=== PATIENT | female | born 1995 | race Two or more races ===

== ENCOUNTER 2016-11-25 19:02 | Emergency (ER) | payer SELFPAY ==
[~2016-11-25] VITALS: Ht 157.5 cm; Wt 72.6 kg
[~2016-11-25 19:02] MED LIST: HYDR-2666 PO; PROM25TA10 PO
[2016-11-25 19:48] VITALS: BP 136/62
[2016-11-25] MEDS ORDERED: IOHEXOL 300 MG/ML 75 ML VIAL IV ONE (20:30)
--- NOTE | 2016-11-25 20:57 | RAD ---
CT soft tissue neck with contrast Indication: Left jaw pain and swelling. Axial imaging through the soft tissues of the neck was performed after the administration of intravenous contrast. Sagittal and coronal reformations were also performed. No prior studies are available for comparison. The visualized intracranial structures are unremarkable. The posterior nasopharynx is unremarkable. There is some thickening of the oropharyngeal mucosa, perhaps on the basis of pharyngitis or tonsillitis. The parapharyngeal fat planes are preserved. There is no fluid collection or abscess. No retropharyngeal fluid collection is seen. There are some enlarged jugulodigastric lymph nodes bilaterally which are likely reactive. The submandibular and parotid glands are symmetric bilaterally. The epiglottis is unremarkable. Larynx is unremarkable. No thyroid mass is detected. Note is made of moderate mucosal thickening bilateral maxillary sinuses as well as sphenoid sinus. Impression: There appears to be some thickening of the marlon pharyngeal mucosal space, described above, consistent with nonspecific pharyngitis or perhaps tonsillitis. Direct visualization is recommended. No definite retropharyngeal abscess or tonsillar abscess is seen. There appear to be reactive lymphadenopathy bilaterally. Moderate paranasal sinus mucosal disease is also seen. Electronically signed by: Isaac Willis MD (Nov 25, 2016 20:56:07)
[2016-11-25] MEDS ORDERED: PENI500T PO (21:38)
--- NOTE | 2016-11-25 21:39 | PHYS DOC ---
Past Medical History Past Medical History: No Pertinent History Past Surgical History: No Surgical History Alcohol Use: None Drug Use: None Adult General Chief Complaint Chief Complaint: Congestion HPI HPI Patient is a 21 year old female who presents with diffiuclty fully opening her mouth for 4 days. reports approx 8 days ago she experienced fever, cough which resolved. Denies injury or interventions at home Review of Systems Review of Systems Constitutional: Denies fever or chills Eyes: Denies change in visual acuity, redness, or eye pain HENT: Denies nasal congestion or sore throat. Difficulty opening mouth Respiratory: Denies cough or shortness of breath Cardiovascular: No additional information not addressed in HPI GI: Denies abdominal pain, nausea, vomiting, bloody stools or diarrhea : Denies dysuria or hematuria Musculoskeletal: Denies back pain or joint pain Integument: Denies rash or skin lesions Neurologic: Denies headache, focal weakness or sensory changes Endocrine: Denies polyuria or polydipsia Current Medications Current Medications Current Medications Medications (Trade) Dose Ordered Sig/Lesley Start Time Stop Time Status Last Admin Dose Admin Iohexol (Omnipaque 300 Mg/ml) 75 ml 1X ONCE 11/25/16 20:30 11/25/16 20:31 DC 11/25/16 20:37 75 ML Allergies Allergies Allergies Coded Allergies Type Severity Reaction Last Updated Verified No Known Drug Allergies 09/30/16 No Physical Exam Physical Exam Constitutional: Well developed, well nourished, no acute distress, non-toxic appearance. HENT: Normocephalic, atraumatic, bilateral external ears normal, oropharynx moist, no oral exudates, nose normal. 4cm opening of mouth between front teeth. right oropharynxy erythematous. No tenderness or swellingover mastoid process. Eyes: PERRLA, EOMI, conjunctiva normal, no discharge. Neck: Normal range of motion, no tenderness, supple, no stridor. Cardiovascular:Heart rate regular rhythm, no murmur [] Lungs & Thorax: Bilateral breath sounds clear to auscultation [] Abdomen: Bowel sounds normal, soft, no tenderness, no masses, no pulsatile masses. [] Skin: Warm, dry, no erythema, no rash. [] Back: No tenderness, no CVA tenderness. [] Extremities: No tenderness, no cyanosis, no clubbing, ROM intact, no edema. [] Neurologic: Alert and oriented X 3, normal motor function, normal sensory function, no focal deficits noted. [] Psychologic: Affect normal, judgement normal, mood normal. [] Current Patient Data Vital Signs Vital Signs Date Time Temp Pulse Resp B/P Pulse Ox O2 Delivery O2 Flow Rate FiO2 11/25/16 19:48 98.8 90 18 99 Room Air 98.8 EKG EKG [] Radiology/Procedures Radiology/Procedures [] Impressions: 1. jaw pain Course & Med Decision Making Course & Med Decision Making Pertinent Labs and Imaging studies reviewed. (See chart for details) [] Dragon Disclaimer Dragon Disclaimer This electronic medical record was generated, in whole or in part, using a voice recognition dictation system. Departure Departure Impression: Primary Impression: Jaw pain Additional Impression: Acute pharyngitis Disposition: 01 HOME, SELF-CARE Condition: STABLE Referrals: UNKNOWN PCP NAME (PCP) Patient Instructions: Temporomandibular Joint Pain-Brief, Viral and Bacterial Pharyngitis, [id number] Additional Instructions: Take medication as prescribed. Return if problems or concerns. Follow up with primary doctor in 1-2 days Scripts Penicillin V Potassium 500 Mg Tablet1 Tab PO BID #[id number] TAB Prov:ADELSO SPRING APRN 11/25/16 Problem Qualifiers ADELSO SPRING APRN Nov 25, 2016 21:39
== END 2016-11-25 22:01 | disposition home or self-care (01) ==
LOC: ER 19:02
DX: R68.84 Jaw pain (principal); J02.9 Acute pharyngitis, unspecified
CPT/HCPCS: 70491; 99284; Q9967